=== PATIENT | female | born 1955 | race Caucasian/White ===

== ENCOUNTER 2021-04-03 23:24 | Inpatient (IN) | payer OTHER ==
[~2021-04-03] VITALS: Ht 167.6 cm; Wt 72.7 kg
[2021-04-04 00:28] LABS: BASOPHIL 0.3 % (0-2); EOSINOPHIL 0 % (0-5); HCT 35.1 % (37.0-47.0); MCH 30.6 pg (25.0-31.0); MCHC 34.2 g/dL (32.0-36.0); MCV 89.5 fL (78.0-100.0); MONOCYTE 3.6 % (0-12); MPV 10.2 fL (6.0-9.5); NEUTROPHIL 81.7 % (41-80); NRBC 0; PLT 182 K/uL (150-400); RBC 3.92 M/uL (4.20-5.40); RDW 13.1 % (11.5-14.0); WBC 6.4 K/uL (4.0-10.5)
[2021-04-04 00:32] LABS: INR 1.07 (0.9-1.2); PROTHROMBIN TIME 13.3 SECONDS (11.8-13.4); PTT 29.8 SECONDS (24.4-34.7)
[2021-04-04 00:47] LABS: PRO-BNP 214 pg/mL (<125)
[2021-04-04 00:52] LABS: LACTIC ACID 1.4 mmol/L (0.4-1.9)
[2021-04-04 00:59] LABS: BILIRUBIN - TOTAL 0.4 mg/dL (0.2-1.0); BUN/CREAT RATIO (CALC) 22.2 RATIO; C-REACTIVE PROTEIN 11.7 mg/dL (<=0.90); CREATININE 0.81 mg/dL (0.51-0.95); MAGNESIUM 1.9 mg/dL (1.8-2.4)
[2021-04-04 05:59] LABS: BILIRUBIN NEGATIVE (NEGATIVE); BLOOD TRACE-INTACT Ery/uL (NEGATIVE); CLARITY CLEAR (CLEAR); COLOR YELLOW (YELLOW); GLUCOSE (U) NORMAL (NORMAL); LEUKOCYTES TRACE Leu/uL (NEGATIVE); NITRITE NEGATIVE (NEGATIVE); PROTEIN TRACE (LOW) mg/dL (NEGATIVE); UROBILINOGEN 0.2 mg/dL (0.2-1.0)
[2021-04-04 06:05] LABS: URINARY RBC RARE; URINARY WBC RARE
[2021-04-04 17:08] LABS: FOLIC ACID (SERUM) 38.6 ng/mL (8.6-58.9)
--- NOTE | 2021-04-05 06:44 | NUR ---
PT INFORMED NURSE OVER CONCERN OF POSSIBLE REACTION SHE MAY BE EXPERIENCING WITH REMDESIVIR. NURSE INFORMED ABNER DAVIES OF PT CONCERN .
[2021-04-05 07:18] LABS: BASOPHIL 0.4 % (0-2); EOSINOPHIL 0 % (0-5); HCT 32.3 % (37.0-47.0); HGB 10.8 g/dl (12.5-16.0); LYMPHOCYTE 11.3 % (15-48); MCH 30.3 pg (25.0-31.0); MCHC 33.4 g/dL (32.0-36.0); MCV 90.7 fL (78.0-100.0); MONOCYTE 2.7 % (0-12); MPV 10.2 fL (6.0-9.5); NEUTROPHIL 79.2 % (41-80); NRBC 0; PLT 205 K/uL (150-400); RBC 3.56 M/uL (4.20-5.40); RDW 13.4 % (11.5-14.0)
[2021-04-05 07:19] LABS: WBC 5.5 K/uL (4.0-10.5)
[2021-04-05 07:47] LABS: BUN/CREAT RATIO (CALC) 21.1 RATIO; CREATININE 0.57 mg/dL (0.51-0.95); MAGNESIUM 2.1 mg/dL (1.8-2.4); POTASSIUM 4.1 mmol/L (3.5-5.1)
[2021-04-06 07:27] LABS: BASOPHIL 0.4 % (0-2); EOSINOPHIL 0 % (0-5); HCT 32.5 % (37.0-47.0); HGB 10.8 g/dl (12.5-16.0); MCH 30.6 pg (25.0-31.0); MCHC 33.2 g/dL (32.0-36.0); MCV 92.1 fL (78.0-100.0); MPV 10.2 fL (6.0-9.5); NEUTROPHIL 82.1 % (41-80); NRBC 0; PLT 263 K/uL (150-400); RBC 3.53 M/uL (4.20-5.40); RDW 13.8 % (11.5-14.0)
[2021-04-06 07:52] LABS: WBC 14.8 K/uL (4.0-10.5)
[2021-04-06 08:24] LABS: ALBUMIN 2.3 g/dL (3.4-5.0); BILIRUBIN - TOTAL 0.2 mg/dL (0.2-1.0); C-REACTIVE PROTEIN 7.7 mg/dL (<=0.90); CREATININE 0.64 mg/dL (0.51-0.95); GLOBULIN (CALCULATION) 3.6 g/dL; POTASSIUM 3.9 mmol/L (3.5-5.1); TOTAL PROTEIN 5.9 g/dL (6.4-8.2)
[2021-04-07 07:37] LABS: BASOPHIL 0.4 % (0-2); EOSINOPHIL 0 % (0-5); HCT 32.8 % (37.0-47.0); HGB 10.8 g/dl (12.5-16.0); LYMPHOCYTE 7.7 % (15-48); MCH 30.4 pg (25.0-31.0); MCHC 32.9 g/dL (32.0-36.0); MCV 92.4 fL (78.0-100.0); MONOCYTE 3.5 % (0-12); MPV 9.9 fL (6.0-9.5); NEUTROPHIL 81.7 % (41-80); NRBC 0; PLT 254 K/uL (150-400); RBC 3.55 M/uL (4.20-5.40); RDW 13.7 % (11.5-14.0); WBC 15.9 K/uL (4.0-10.5)
[2021-04-07 08:26] LABS: ALBUMIN 2.4 g/dL (3.4-5.0); BILIRUBIN - TOTAL 0.4 mg/dL (0.2-1.0); BUN/CREAT RATIO (CALC) 28.8 RATIO; C-REACTIVE PROTEIN 4.3 mg/dL (<=0.90); CREATININE 0.59 mg/dL (0.51-0.95); GLOBULIN (CALCULATION) 3.4 g/dL; POTASSIUM 3.9 mmol/L (3.5-5.1); TOTAL PROTEIN 5.8 g/dL (6.4-8.2)
[2021-04-08 05:22] LABS: BASOPHIL 0.6 % (0-2); EOSINOPHIL 0 % (0-5); HCT 31.8 % (37.0-47.0); HGB 10.7 g/dl (12.5-16.0); LYMPHOCYTE 8.2 % (15-48); MCH 30.7 pg (25.0-31.0); MCHC 33.6 g/dL (32.0-36.0); MCV 91.1 fL (78.0-100.0); MONOCYTE 3.7 % (0-12); MPV 9.7 fL (6.0-9.5); NRBC 0.2; PLT 241 K/uL (150-400); RBC 3.49 M/uL (4.20-5.40); RDW 13.4 % (11.5-14.0)
[2021-04-08 05:24] LABS: NEUTROPHIL 78.1 % (41-80)
[2021-04-08 05:59] LABS: ALBUMIN 2.3 g/dL (3.4-5.0); BILIRUBIN - TOTAL 0.5 mg/dL (0.2-1.0); BUN/CREAT RATIO (CALC) 24.2 RATIO; C-REACTIVE PROTEIN 2.9 mg/dL (<=0.90); CREATININE 0.66 mg/dL (0.51-0.95); GLOBULIN (CALCULATION) 3.3 g/dL; POTASSIUM 3.4 mmol/L (3.5-5.1); TOTAL PROTEIN 5.6 g/dL (6.4-8.2)
[2021-04-09 08:03] LABS: BASOPHIL 0.1 % (0-2); EOSINOPHIL 0.1 & (0-5); HGB 11.3 g/dl (12.5-16.0); LYMPHOCYTE 10.3 % (15-48); MCH 30.8 pg (25.0-31.0); MCHC 33.2 g/dL (32.0-36.0); MCV 92.6 fL (78.0-100.0); MONOCYTE 3.6 % (0-12); MPV 9.9 fL (6.0-9.5); NEUTROPHIL 77.3 % (41-80); PLT 246 K/uL (150-400); RBC 3.67 M/uL (4.20-5.40); RDW 13.2 % (11.5-14.0)
[2021-04-09 08:05] LABS: WBC 13.73 K/uL (4.0-10.5)
[2021-04-09 08:36] LABS: ALBUMIN 2.3 g/dL (3.4-5.0); BILIRUBIN - TOTAL 0.5 mg/dL (0.2-1.0); BUN/CREAT RATIO (CALC) 27.7 RATIO; C-REACTIVE PROTEIN 3.3 mg/dL (<=0.90); CREATININE 0.65 mg/dL (0.51-0.95); GLOBULIN (CALCULATION) 3.5 g/dL; POTASSIUM 3.6 mmol/L (3.5-5.1); TOTAL PROTEIN 5.8 g/dL (6.4-8.2)
[2021-04-10 07:16] LABS: BASOPHIL 0.1 % (0-2); EOSINOPHIL 0.2 & (0-5); HCT 31.6 % (37.0-47.0); HGB 10.6 g/dl (12.5-16.0); LYMPHOCYTE 11.8 % (15-48); MCHC 33.5 g/dL (32.0-36.0); MCV 92.4 fL (78.0-100.0); MONOCYTE 4.6 % (0-12); MPV 10.1 fL (6.0-9.5); NEUTROPHIL 74.2 % (41-80); PLT 217 K/uL (150-400); RBC 3.42 M/uL (4.20-5.40); RDW 13.1 % (11.5-14.0); WBC 12.24 K/uL (4.0-10.5)
[2021-04-10 07:56] LABS: ALBUMIN 2.2 g/dL (3.4-5.0); BILIRUBIN - TOTAL 0.5 mg/dL (0.2-1.0); BUN/CREAT RATIO (CALC) 24.3 RATIO; C-REACTIVE PROTEIN 2.4 mg/dL (<=0.90); CREATININE 0.7 mg/dL (0.51-0.95); GLOBULIN (CALCULATION) 3.2 g/dL; POTASSIUM 3.6 mmol/L (3.5-5.1); TOTAL PROTEIN 5.4 g/dL (6.4-8.2)
[2021-04-11 06:06] LABS: BASOPHIL 0.3 % (0-2); EOSINOPHIL 0.2 % (0-5); HCT 31.4 % (37.0-47.0); HGB 10.3 g/dl (12.5-16.0); LYMPHOCYTE 11.4 % (15-48); MCH 30.6 pg (25.0-31.0); MCHC 32.8 g/dL (32.0-36.0); MCV 93.2 fL (78.0-100.0); MONOCYTE 3.6 % (0-12); MPV 10.4 fL (6.0-9.5); NEUTROPHIL 75.7 % (41-80); NRBC 0; PLT 222 K/uL (150-400); RBC 3.37 M/uL (4.20-5.40); RDW 13.3 % (11.5-14.0); WBC 8.9 K/uL (4.0-10.5)
[2021-04-11 06:54] LABS: ALBUMIN 2.2 g/dL (3.4-5.0); BILIRUBIN - TOTAL 0.5 mg/dL (0.2-1.0); BUN/CREAT RATIO (CALC) 28.8 RATIO; C-REACTIVE PROTEIN 2.2 mg/dL (<=0.90); CREATININE 0.66 mg/dL (0.51-0.95); GLOBULIN (CALCULATION) 3.4 g/dL; POTASSIUM 3.5 mmol/L (3.5-5.1); TOTAL PROTEIN 5.6 g/dL (6.4-8.2)
[2021-04-11] MEDS ORDERED: PROVENTIL HFA6.7 GM INH ×2 (15:40→15:55)
[2021-04-11] MEDS ORDERED: ATROVENT HFA12.9 GM INH ×2 (15:40→15:53)
[2021-04-11] MEDS ORDERED: DEXAMETHASONE 2M2 MG PO ×2 (15:40→15:55)
--- NOTE | 2021-04-11 16:00 | NUR ---
04/11/21 Referrals were made to [facility] nursing and [facility] for [facility] per patient choice. Report given to MS PRITESH Fajardo.
== END 2021-04-11 17:35 | disposition home health service (06) | DRG 177 ==
LOC: FER 23:24 → FMS 04-04 04:54
PROVIDERS: Emergency Medicine; Internal Medicine; ADMIT Internal Medicine
PROC: 8E0ZXY6 Isolation (ICD-10-PCS; principal; 2021-04-04)
PROC: XW033E5 Introduction of Remdesivir Anti-infective into Peripheral Vein, Percutaneous Approach, New Technology Group 5 (ICD-10-PCS; 2021-04-04)
PROC: XW0DXM6 Introduction of Baricitinib into Mouth and Pharynx, External Approach, New Technology Group 6 (ICD-10-PCS; 2021-04-05)
DX: U07.1 COVID-19 (principal); J12.82 Pneumonia due to coronavirus disease 2019; J96.01 Acute respiratory failure with hypoxia; E86.0 Dehydration; Z87.01 Personal history of pneumonia (recurrent); Z90.89 Acquired absence of other organs; Z86.718 Personal history of other venous thrombosis and embolism; Z88.2 Allergy status to sulfonamides; Z88.0 Allergy status to penicillin; Z88.1 Allergy status to other antibiotic agents; Z88.3 Allergy status to other anti-infective agents
CPT/HCPCS: 36415; 36600; 71045; 80048; 80053; 81001; 82607; 82728; 82746; 82803; 83540; 83550; 83605; 83615; 83735; 83880; 84145; 84484; 85025; 85610; 85730; 86140; 87040; 87088; 93005; 94010; 94640; 94668; 94760; 94762; C9399; J1100; J1650; J7030; J7050; J7120; U0002

== ENCOUNTER 2021-04-19 13:07 | Emergency (ER) | payer OTHER ==
[~2021-04-19 13:07] MED LIST: ATROVENT HFA12.9 GM INH; DEXAMETHASONE 2M2 MG PO; PROVENTIL HFA6.7 GM INH
[2021-04-19 14:25] LABS: BASOPHIL 0.2 % (0-2); EOSINOPHIL 0.1 % (0-5); HCT 34.6 % (37.0-47.0); HGB 11.2 g/dl (12.5-16.0); LYMPHOCYTE 12.2 % (15-48); MCH 30.8 pg (25.0-31.0); MCHC 32.4 g/dL (32.0-36.0); MCV 95.1 fL (78.0-100.0); MPV 10.5 fL (6.0-9.5); NEUTROPHIL 79.3 % (41-80); NRBC 0; PLT 244 K/uL (150-400); RBC 3.64 M/uL (4.20-5.40); RDW 14.4 % (11.5-14.0); WBC 8.6 K/uL (4.0-10.5)
[2021-04-19 14:31] LABS: INR 1.01 (0.9-1.2); PROTHROMBIN TIME 12.7 SECONDS (11.8-13.4); PTT 22.7 SECONDS (24.4-34.7)
[2021-04-19 14:40] LABS: ALBUMIN 3.2 g/dL (3.4-5.0); BILIRUBIN - TOTAL 0.3 mg/dL (0.2-1.0); BUN/CREAT RATIO (CALC) 30.9 RATIO; CREATININE 0.81 mg/dL (0.51-0.95); GLOBULIN (CALCULATION) 3.5 g/dL; TOTAL PROTEIN 6.7 g/dL (6.4-8.2)
[2021-04-19] MEDS ORDERED: ELIQUIS5 MG PO (16:01)
== END 2021-04-19 16:24 | disposition home or self-care (01) ==
LOC: FER 13:07
PROVIDERS: Emergency Medicine
DX: I82.411 Acute embolism and thrombosis of right femoral vein (principal); I26.99 Other pulmonary embolism without acute cor pulmonale; Z88.0 Allergy status to penicillin; Z88.2 Allergy status to sulfonamides
CPT/HCPCS: 36415; 71275; 80053; 85025; 85610; 85730; 93971; Q9967

== ENCOUNTER 2021-11-28 21:31 | Emergency (ER) | payer OTHER ==
[~2021-11-28 21:31] MED LIST changes: +ELIQUIS5 MG PO
== END 2021-11-28 23:52 | disposition home or self-care (01) ==
LOC: FER 21:31
DX: M54.2 Cervicalgia (principal); Z88.0 Allergy status to penicillin; Z88.2 Allergy status to sulfonamides; Z28.310 Unvaccinated for COVID-19; V49.40XA Driver injured in collision with unspecified motor vehicles in traffic accident, initial encounter
CPT/HCPCS: 70450; 71250; 72125